=== PATIENT | female | born 1980 | race Two or more races ===

== ENCOUNTER → 2020-11-12 | Outpatient (CLI) | payer SELFPAY ==
[~2020-11-12] MED LIST: DOCU-109 PO; IBUP-1060 PO
== END ==
LOC: LAB 10:37
PROVIDERS: ATTEND Obstetrics & Gynecology
DX: U07.1 COVID-19 (principal); Z01.812 Encounter for preprocedural laboratory examination
CPT/HCPCS: U0003; U0005

== ENCOUNTER 2020-11-15 06:17 | Inpatient (IN) | payer SELFPAY ==
[~2020-11-15] VITALS: Ht 160 cm; Wt 67.1 kg
[2020-11-15] MEDS ORDERED: OXYTOCIN 30 UNIT/500 ML PREMIX 500 ML IV PRN ×2 (06:30)
[2020-11-15] MEDS ORDERED: TERBUTALINE 1 MG/ML VIAL. SQ PRN (06:30)
[2020-11-15] MEDS ORDERED: LIDOCAINE 1% PF 30 ML VIAL. INJ PRN (06:30)
[2020-11-15] MEDS ORDERED: 0.9 % SODIUM CHLORIDE 10 ML DISP.SYRIN. IV PRN (06:30)
[2020-11-15] MEDS ORDERED: BUTORPHANOL 2 MG/ML VIAL. IVP PRN ×2 (06:30)
[2020-11-15] MEDS ORDERED: ACETAMINOPHEN 325 MG TABLET. PO PRN (06:30)
[2020-11-15 07:07] VITALS: BP 114/77
[2020-11-15 08:25] LABS: BASO % 0 % (0-3); EOS # 0.1 x10^3/uL (0.0-0.7); EOS % 1 % (0-3); HEMATOCRIT 37.1 % (36.0-47.0); HEMOGLOBIN 12.7 g/dL (12.0-15.5); LYMPH # 1.2 x10^3/uL (1.0-4.8); LYMPH % 18 % (24-48); MEAN CORPUSCULAR HEMOGLOBIN 33 pg (25-35); MEAN CORPUSCULAR HGB CONC 34 g/dL (31-37); MEAN CORPUSCULAR VOLUME 96 fL (79-100); MONO # 0.5 x10^3/uL (0.0-1.1); MONO % 8 % (0-9); NEUT # 4.8 x10^3/uL (1.8-7.7); NEUT % 73 % (31-73); PLATELET COUNT 207 x10^3/uL (140-400); RED BLOOD COUNT 3.88 x10^6/uL (3.50-5.40); RED CELL DISTRIBUTION WIDTH 13.4 % (11.5-14.5); WHITE BLOOD COUNT 6.6 x10^3/uL (4.0-11.0)
[2020-11-15] MEDS: IV RINGERS,LACTATED 1000ML 1,000 ML IV SCH ×3 (08:32→22:46)
--- NOTE | 2020-11-15 09:24 | PDOC1 ---
IT TRAINEE H&P Date of Admission: Date of Admission: November 15, 2020 at 06:17 History of Present Illness: EDC: 11/19/20 LMP: 02/13/20 40y @ 39.3 by L=19 presents for indxn. The pt has not been feeling ctxs. PMH: Denies PSH: Denies Meds: ASA, PNV All: NKDA OBHx: TSVD x 3 SH: no tob, no EtOH FH: noncontributory Medications: Meds: Current Medications Medications (Trade) Dose Ordered Sig/Shay Route PRN Reason Start Time Stop Time Status Last Admin Dose Admin Ringer's Solution 1,000 ml @ 125 mls/hr Q8H IV 11/15/20 06:30 11/15/20 08:32 Oxytocin 500 ml @ 0 mls/hr CONT PRN IV SEE I/O RECORD 11/15/20 06:30 11/15/20 08:33 Allergies: Coded Allergies: No Known Drug Allergies (Unverified , 11/15/20) Physical Exam: Vital Signs: Vital Signs Date Time Temp Pulse Resp B/P (MAP) Pulse Ox O2 Delivery O2 Flow Rate FiO2 11/15/20 07:07 99.1 88 20 114/77 (89) 99 99.1 PE: GENERAL: No apparent distress. Alert and oriented. HEENT: Head normocephalic, atraumatic. NECK: Supple LUNGS: Clear to auscultation. HEART: RRR, S1, S2 present, pulses intact ABDOMEN: Soft, positive bowel sounds. EXTREMITIES: No cyanosis or edema. NEUROLOGIC: Normal speech, normal tone PSYCHIATRIC: Normal affect, normal mood. SKIN: No ulceration. FHT: 150s +acels/no decels/mLTV [place]: 3 min SVE: 1-2/50/-3 Labs: Laboratory Tests Test 11/15/20 08:00 White Blood Count 6.6 x10^3/uL (4.0-11.0) Red Blood Count 3.88 x10^6/uL (3.50-5.40) Hemoglobin 12.7 g/dL (12.0-15.5) Hematocrit 37.1 % (36.0-47.0) Mean Corpuscular Volume 96 fL (79-100) Mean Corpuscular Hemoglobin 33 pg (25-35) Mean Corpuscular Hemoglobin Concent 34 g/dL (31-37) Red Cell Distribution Width 13.4 % (11.5-14.5) Platelet Count 207 x10^3/uL (140-400) Neutrophils (%) (Auto) 73 % (31-73) Lymphocytes (%) (Auto) 18 % (24-48) L Monocytes (%) (Auto) 8 % (0-9) Eosinophils (%) (Auto) 1 % (0-3) Basophils (%) (Auto) 0 % (0-3) Neutrophils # (Auto) 4.8 x10^3/uL (1.8-7.7) Lymphocytes # (Auto) 1.2 x10^3/uL (1.0-4.8) Monocytes # (Auto) 0.5 x10^3/uL (0.0-1.1) Eosinophils # (Auto) 0.1 x10^3/uL (0.0-0.7) Basophils # (Auto) 0.0 x10^3/uL (0.0-0.2) Laboratory Tests 11/15/20 08:00 Laboratory Tests 11/15/20 08:00 Assessment & Plan: A/P 40y @ 39.3 by L=19 1.) Indxn on Pit 2.) Placenta previa resolved on 11/04/20 u/s 3.) AMA - AFP pos, NIPT low risk 4.) Fibroids - anterior lower uterine segment measuring 2.9 x 2.2 x 2.0 cm 5.) CF screen pos - declined genetic counseling 6.) Yue NI 7.) Flu vaccine given 05/17/20 7.) TDAP given 09/09/20 9.) DPS - consent signed 10/07/20 10.) Fetus cat I FHT 11.) GBS neg RUMA HESS MD November 15, 2020 09:24
--- NOTE | 2020-11-15 13:55 | PDOC ---
GRANT OFFICER PROGRESS NOTE Date of Service: DATE: 11/15/20 TIME: 13:54 Subjective: Pt starting to feel the ctxs are more intense. Over the last 3 hrs the pt has had more bloody show Objective: Vital Signs: Vital Signs Date Time Temp Pulse Resp B/P (MAP) Pulse Ox O2 Delivery O2 Flow Rate FiO2 11/15/20 07:07 99.1 88 20 114/77 (89) 99 99.1 Vital Signs Date Time Temp Pulse Resp B/P (MAP) Pulse Ox O2 Delivery O2 Flow Rate FiO2 11/15/20 07:07 99.1 88 20 114/77 (89) 99 99.1 Labs: Laboratory Tests Test 11/15/20 08:00 11/15/20 10:35 White Blood Count 6.6 x10^3/uL (4.0-11.0) Red Blood Count 3.88 x10^6/uL (3.50-5.40) Hemoglobin 12.7 g/dL (12.0-15.5) Hematocrit 37.1 % (36.0-47.0) Mean Corpuscular Volume 96 fL (79-100) Mean Corpuscular Hemoglobin 33 pg (25-35) Mean Corpuscular Hemoglobin Concent 34 g/dL (31-37) Red Cell Distribution Width 13.4 % (11.5-14.5) Platelet Count 207 x10^3/uL (140-400) Neutrophils (%) (Auto) 73 % (31-73) Lymphocytes (%) (Auto) 18 % (24-48) L Monocytes (%) (Auto) 8 % (0-9) Eosinophils (%) (Auto) 1 % (0-3) Basophils (%) (Auto) 0 % (0-3) Neutrophils # (Auto) 4.8 x10^3/uL (1.8-7.7) Lymphocytes # (Auto) 1.2 x10^3/uL (1.0-4.8) Monocytes # (Auto) 0.5 x10^3/uL (0.0-1.1) Eosinophils # (Auto) 0.1 x10^3/uL (0.0-0.7) Basophils # (Auto) 0.0 x10^3/uL (0.0-0.2) SARS-CoV-2 Antigen (Rapid) Negative (NEGATIVE) Laboratory Tests 11/15/20 08:00 Laboratory Tests 11/15/20 08:00 Physical Exam: GENERAL: No apparent distress. Alert and oriented. HEENT: Head normocephalic, atraumatic. NECK: Supple LUNGS: Clear to auscultation. HEART: RRR, S1, S2 present, pulses intact ABDOMEN: Soft, positive bowel sounds. EXTREMITIES: No cyanosis or edema. NEUROLOGIC: Normal speech, normal tone PSYCHIATRIC: Normal affect, normal mood. SKIN: No ulceration. FHT: 140s +acels/no decels/mLTV [place]: 2-3 min SVE: 250/-3 Assessment & Plan: A/P 40y @ 39.3 by L=19 1.) Indxn on Pit, AROM (bloody) for augmentation, blood thought to be from cervical change 2.) Placenta previa resolved on 11/04/20 u/s 3.) AMA - AFP pos, NIPT low risk 4.) Fibroids - anterior lower uterine segment measuring 2.9 x 2.2 x 2.0 cm 5.) CF screen pos - declined genetic counseling 6.) Yue NI 7.) Flu vaccine given 05/17/20 7.) TDAP given 09/09/20 9.) DPS - consent signed 10/07/20 10.) Fetus cat I FHT 11.) GBS neg RUMA HESS MD November 15, 2020 13:55
[2020-11-15] MEDS ORDERED: ROPIVacaine 0.2% PF 10 ML VIAL. ONE ×2 (18:36→19:00)
[2020-11-15] MEDS ORDERED: L&D EPIDURAL SYRINGE 50 ML ONE (18:37)
[2020-11-15] MEDS ORDERED: L&D EPIDURAL 50 ML SYRINGE. ONE (19:00)
[2020-11-15] MEDS ORDERED: ONDANSETRON PF 4 MG/2 ML VIAL. IVP PRN (19:45)
[2020-11-15] MEDS ORDERED: NALOXONE 0.4 MG/ML VIAL. IV PRN (19:45)
[2020-11-15] MEDS ORDERED: L&D EPIDURAL SYRINGE 50 ML EPID PRN (19:45)
[2020-11-15] MEDS ORDERED: IV RINGERS,LACTATED 1000ML 1,000 ML IV SCH (19:45)
[2020-11-15] MEDS ORDERED: fentaNYL PF VIAL 100 MCG/2 ML VIAL EPID PRN (19:45)
[2020-11-16] MEDS ORDERED: OXYTOCIN PREMIX 30 UNIT/500 ML NS BAG. IV ONE (02:30)
--- NOTE | 2020-11-16 02:45 | PDOC ---
VAGINAL DELIVERY DATE DATE: 11/16/20 TIME: 02:44 TIME Patient delivered a viable female over intact perineum at 0223. Wt 6 lb 12 oz. Apgars 8/9. Placenta delivered spontaneously, intact with 3VC. Small 2nd degree laceration with 3'0 vicryl in nml fashion. Good hemostasis noted. 20 U of Pit given with IVF. EBL 300cc. WEIGHT Weight [ ] RUMA HESS MD November 16, 2020 02:45
[2020-11-16] MEDS ORDERED: IBUPROFEN 400 MG TABLET. PO PRN (03:00)
[2020-11-16] MEDS ORDERED: ACETAMINOPHEN 325 MG TABLET. PO PRN (03:00)
[2020-11-16] MEDS ORDERED: oxyCODONE/APAP 5/325 1 TAB TABLET PO PRN (03:00)
[2020-11-16] MEDS ORDERED: TDaP (Adacel) per PROTOCOL. MC PRN (03:00)
[2020-11-16] MEDS ORDERED: ZOLPIDEM 5 MG TABLET. PO PRN (03:00)
[2020-11-16] MEDS ORDERED: MMR per PROTOCOL. MC PRN (03:00)
[2020-11-16] MEDS ORDERED: BENZOCAINE 20% TOPICAL AEROSOL SPRAY 57GM CAN. TP PRN (03:00)
[2020-11-16] MEDS ORDERED: HYDROCORTISONE 1% TOPICAL OINTMENT 30GM TUBE. TP PRN (03:00)
[2020-11-16] MEDS ORDERED: SIMETHICONE 80 MG TAB.CHEW PO PRN (03:00)
[2020-11-16] MEDS ORDERED: 0.9 % SODIUM CHLORIDE 10 ML DISP.SYRIN. IV PRN (03:00)
[2020-11-16] MEDS ORDERED: OXYTOCIN 30 UNIT/500 ML PREMIX 500 ML IV PRN (03:00)
[2020-11-16] MEDS ORDERED: MAG HYDROX/ALUMINUM HYD/SIMETH 30 ML ORAL.SUSP PO PRN (03:00)
[2020-11-16] MEDS ORDERED: diphenhydrAMINE HCL 25 MG CAPSULE PO PRN (03:00)
[2020-11-16] MEDS ORDERED: PHENYLEPH/MINERAL OIL/PETROLAT RECTAL OINTMENT TUBE. RC PRN (03:00)
[2020-11-16] MEDS ORDERED: MAGNESIUM HYDROXIDE 2,400 MG/30 ML ORAL.SUSP. PO PRN (03:00)
[2020-11-16 08:00] VITALS: BP 107/68
[2020-11-16] MEDS: DOCUSATE SODIUM 100 MG CAPSULE. PO PRN ×2 (08:27→21:25)
[2020-11-16] MEDS ORDERED: PRENATAL MULTIVITAMIN TABLET. PO SCH (09:00)
[2020-11-16 15:05] VITALS: BP 114/64
[2020-11-16 18:30] VITALS: BP 117/89
[2020-11-16 21:06] VITALS: BP 103/64
[2020-11-17 04:48] LABS: HEMATOCRIT 33.7 % (36.0-47.0); HEMOGLOBIN 11.4 g/dL (12.0-15.5); RED BLOOD COUNT 3.52 x10^6/uL (3.50-5.40); RED CELL DISTRIBUTION WIDTH 13.7 % (11.5-14.5); WHITE BLOOD COUNT 8.8 x10^3/uL (4.0-11.0)
[2020-11-17 05:06] VITALS: BP 111/63
[2020-11-17] MEDS ORDERED: PROCHLORPERAZINE 10 MG/2 ML VIAL. IVP PRN (06:00)
[2020-11-17] MEDS ORDERED: IV RINGERS,LACTATED 1000ML 1,000 ML IV SCH (06:00)
[2020-11-17] MEDS ORDERED: HYDROmorphone 2 MG/ML VIAL IVP PRN (06:00)
[2020-11-17] MEDS ORDERED: MORPHINE SULFATE 2 MG/ML VIAL. IVP PRN (06:00)
[2020-11-17] MEDS ORDERED: fentaNYL PF VIAL 100 MCG/2 ML VIAL IVP PRN ×2 (06:00)
--- NOTE | 2020-11-17 06:15 | NUR ---
talked with this patient via string top sealer phone and she verified that she indeed did not want to go through with the surgery this morning. I spoke with Dr. Kellogg and informed him about the patients decision and then I spoke with Antoinette in surgery and notified her that the surgery has been cancelled.
[2020-11-17] MEDS ORDERED: FERROUS SULFATE 325 MG TABLET. PO SCH (08:00)
--- NOTE | 2020-11-17 09:35 | PDOC ---
REMELT OPERATOR PROGRESS NOTE Date of Service: DATE: 11/17/20 TIME: 09:34 Subjective: Pt with good pain control. Riley PO. Voiding. Minimal lochia Objective: Vital Signs: Vital Signs Date Time Temp Pulse Resp B/P (MAP) Pulse Ox O2 Delivery O2 Flow Rate FiO2 11/16/20 08:00 Room Air 11/16/20 08:00 98.4 84 16 107/68 (81) 98 98.4 Vital Signs Date Time Temp Pulse Resp B/P (MAP) Pulse Ox O2 Delivery O2 Flow Rate FiO2 11/17/20 05:06 97.6 70 18 111/63 (79) 100 Room Air 97.6 Labs: Laboratory Tests Test 11/17/20 04:20 White Blood Count 8.8 x10^3/uL (4.0-11.0) Red Blood Count 3.52 x10^6/uL (3.50-5.40) Hemoglobin 11.4 g/dL (12.0-15.5) L Hematocrit 33.7 % (36.0-47.0) L Mean Corpuscular Volume 96 fL (79-100) Mean Corpuscular Hemoglobin 32 pg (25-35) Mean Corpuscular Hemoglobin Concent 34 g/dL (31-37) Red Cell Distribution Width 13.7 % (11.5-14.5) Platelet Count 198 x10^3/uL (140-400) Laboratory Tests 11/17/20 04:20 Laboratory Tests 11/17/20 04:20 Physical Exam: GENERAL: No apparent distress. Alert and oriented. HEENT: Head normocephalic, atraumatic. NECK: Supple LUNGS: Clear to auscultation. HEART: RRR, S1, S2 present, pulses intact ABDOMEN: Soft, positive bowel sounds. EXTREMITIES: No cyanosis or edema. NEUROLOGIC: Normal speech, normal tone PSYCHIATRIC: Normal affect, normal mood. SKIN: No ulceration. FFNT below umb No C/C/E Assessment & Plan: A/P 40y PPD #1 s/p 1.) PP doing well 2.) CF screen pos - declined genetic counseling 3.) Yue NI 4.) Flu vaccine given 05/17/20 5.) TDAP given 09/09/20 6.) Hgb 12.7 -> 11.4 7.) DPS - consent signed 10/07/20, has decided that she no longer wants a BTL 8.) D/c home RUMA HESS MD November 17, 2020 09:35
[2020-11-17] MEDS ORDERED: DOCU-109 PO (09:39)
[2020-11-17] MEDS ORDERED: IBUP-1060 PO (09:39)
--- NOTE | 2020-11-17 12:25 | DS ---
DATE OF DISCHARGE: 11/17/2020 ADMITTING DIAGNOSES: 1. Intrauterine at 39 weeks and 3 days by LMP equal to 19-week ultrasound. 2. Induction of labor. 3. Placenta previa, resolved. 4. Advanced maternal age with abnormal AFP, but a normal NIPT. 5. Fibroids. 6. Cystic fibrosis screen positive. 7. Varicella nonimmune. 8. COVID positive. 9. Status post flu vaccine. 10. Status post Tdap. 11. Desires permanent sterilization. 12. Group B Streptococcus negative. DISCHARGE DIAGNOSES: 1. Intrauterine at 39 weeks and 3 days by LMP equal to 19-week ultrasound. 2. Induction of labor. 3. Placenta previa, resolved. 4. Advanced maternal age with abnormal AFP, but a normal NIPT. 5. Fibroids. 6. Cystic fibrosis screen positive. 7. Varicella nonimmune. 8. COVID positive. 9. Status post flu vaccine. 10. Status post Tdap. 11. Desires permanent sterilization. 12. Group B Streptococcus negative. PROCEDURE: Spontaneous vaginal delivery. HOSPITAL COURSE: The patient is a 40-year-old 4, para 3-0-0-3, who presented to labor and delivery at 39 weeks and 3 days by LMP equal to a 19-week ultrasound for induction of labor. The prior weekend, the patient had had COVID screening, which returned positive. The patient was unsure of the results. So over the weekend, she went to 2 different locations and had COVID screening, both of which told her that she was negative. The patient requested that we repeat the test. The test was repeated and both the rapid and PCR returned negative. The patient had very few contractions before presenting to the hospital. The patient was started on Pitocin. The patient progressed slowly throughout most of the day. Membranes were ruptured around 02:00. At that time, the patient was still relatively 2 cm dilated. The patient eventually progressed and around that evening was beginning to make some cervical change. The patient ultimately reached complete. The following morning, the patient delivered by vaginal delivery. See delivery note for full detail. On day #1, after discussing with her , the patient ultimately decided that she no longer desired a tubal ligation. Since the patient was meeting all discharge criteria, she was subsequently discharged home. Of note, her hemoglobin was found to be 12.7 and after delivery, was found to be 11.4. DISCHARGE INSTRUCTIONS: The patient was told not to lift anything greater than 20 pounds and have pelvic rest for 6 weeks. CALL IF: The patient was to call if she had fevers, chills, nausea, vomiting, abdominal pain or any additional questions or concerns. FOLLOWUP APPOINTMENT: The patient was to follow up on 12/29 at 01:00 p.m. for her appointment. DISCHARGE MEDICATIONS: The patient was given a prescription for Motrin 800 mg, 30 pills and Colace 100 mg, 30 pills. SIN/MOISE DR: Shell TID: [id number]
--- NOTE | 2020-11-17 12:50 | NUR ---
Discharge instructions given to patient via interpreter deaf [id number]. Pt verbalized understanding, denied questions. Pt discharged home with infant and spouse.
[2020-11-17 13:20] VITALS: BP 106/63
== END 2020-11-17 13:40 | disposition home or self-care (01) | DRG 807 ==
LOC: 3 SO LND 06:17
PROVIDERS: ADMIT Obstetrics & Gynecology; ATTEND Obstetrics & Gynecology
PROC: 3E033VJ Introduction of Other Hormone into Peripheral Vein, Percutaneous Approach (ICD-10-PCS; 2020-11-15)
PROC: 10907ZC Drainage of Amniotic Fluid, Therapeutic from Products of Conception, Via Natural or Artificial Opening (ICD-10-PCS; 2020-11-15)
PROC: 10E0XZZ Delivery of Products of Conception, External Approach (ICD-10-PCS; principal; 2020-11-16)
PROC: 0KQM0ZZ Repair Perineum Muscle, Open Approach (ICD-10-PCS; 2020-11-16)
DX: O34.13 Maternal care for benign tumor of corpus uteri, third trimester (principal); Z37.0 Single live birth; O70.1 Second degree perineal laceration during delivery; D25.9 Leiomyoma of uterus, unspecified; O75.89 Other specified complications of labor and delivery; R77.2 Abnormality of alphafetoprotein; Z20.822 Contact with and (suspected) exposure to COVID-19; O28.5 Abnormal chromosomal and genetic finding on antenatal screening of mother; Z14.1 Cystic fibrosis carrier; Z3A.39 39 weeks gestation of pregnancy; Z30.2 Encounter for sterilization
CPT/HCPCS: 36415; 85025; 85027; 86592; 86850; 86900; 86901; 87426; C1755; J2590; J2795; J3010; J7120; U0003; U0005; G0378